=== PATIENT | female | born 1960 | race African-American/Black ===

== ENCOUNTER → 2016-05-19 | Outpatient (CLI) | payer MEDICARE, MEDICAID ==
[~2016-05-19] MED LIST: LIDOCAINE 2% INJ (20 MG/ML) 20 ML MDV ONE
--- NOTE | 2016-05-19 17:33 | WOMENS IMAGING REPORT ---
EXAM DESCRIPTION: U/S BREAST UNILAT LIMITED COMPLETED DATE/TIME: 05/19/2016 2:46 pm REASON FOR STUDY: Z85.3 PERSONAL HISTORY OF BREAST CANCER N63 UNSPECIFIED LUMP IN BREAST COMPARISON: Ultrasound left mastectomy incision site 04/27/2016 TECHNIQUE: Real-time and static grayscale imaging performed of the left mastectomy incision site tar geted to the area of clinical concern. Selected color Doppler images recorded. LIMITATIONS: None. FINDINGS: Prior imaging from 04/27/2016 was reviewed. Patient was here today for possible ultrasound-guided core biopsy of a hypoechoic nodule seen in the subcutaneous fat along the old left mastectomy incision identified on 04/27/2016 ultrasound exam. Today, neither patient nor I could feel the area of concern from 04/27/2016. Ultrasound over the left mastectomy incision scar demonstrates no discrete solid nodules. No small c ystic areas. No areas of acoustic absorption. Findings seen on 04/27/2016 have resolved, and may ramirez ve been residua of an inflamed or infected sebaceous cyst. This was discussed with the patient, she will return for additional ultrasound imaging if a palpable nodule recurs along the left mastectomy scar BIRAD: 1 Negative. RECOMMENDATION: RECOMMENDED FOLLOW-UP: Please continue right breast screening mammography in August 06 017 COMMENT: The [employer] (ACR) has developed recommendations for screening MRI of the breasts in certain patient populations, to be used in conjunction with mammography. Breast MRI s urveillance may be appropriate for women with more than 20% lifetime risk of developing breast cancer as determined by genetic testing, significant family history of the disease, or history of mantle r adiation for Hodgkins Disease. ACR Practice Guidelines 2008. TECHNICAL DOCUMENTATION: JOB ID: [id number] [employer]- All Rights Reserved
== END ==
LOC: WI 09:57 → EDSTATUS 14:37 → WI 14:38
PROVIDERS: ATTEND Physician Assistant
DX: N63 Unspecified lump in breast (principal)
CPT/HCPCS: 76642; J3490

== ENCOUNTER 2016-08-07 23:21 | Emergency (ER) | payer MEDICARE, MEDICAID ==
[2016-08-08] MEDS ORDERED: HYDRALAZINE HCL 25 MG TABLET PO ONE (05:04)
--- NOTE | 2016-08-08 05:07 | ER Document Report ---
Doctor's Note Notes: 08/08/16 05:04 I performed a quick triage evaluation of the patient. Patient is a 56-year-old female presents with complaint 5 blood pressure. She has no associated symptoms with a high blood pressure. Patient says that she keeps a close eye on her blood pressure because of her history of aortic dissection. She has an aneurysm that has been repaired the past. This was performed in 2008. She denies any chest pain. No back pain. No lateralizing symptoms. She is on metoprolol, amlodipine, and then our. She denies missing any of her medications. She denies any recent changes in her medications. Patient is very well-appearing on exam. I just rechecked her blood pressure was 159/109. I will give her a dose of oral hydralazine. I will obtain blood work. I do not think patient needs emergent immediate CTA prio to obtaining her creatinine results at this time being that she has no symptoms associated with hypertension. This can be reassessed by the oncoming provider once her blood work is back in her blood pressures treated. Externally pulses are equal. Dictation of this chart was performed using voice recognition software; therefore, there may be some unintended grammatical errors. 08/08/16 05:08
--- NOTE | 2016-08-08 06:07 | ER Document Report ---
ED Blood Pressure Problem - General Mode of Arrival: Ambulatory Information source: Patient TRAVEL OUTSIDE OF THE [place] IN LAST 30 DAYS: No - HPI Patient complains to provider of: High blood pressure Onset: Yesterday Onset/Duration: Gradual, Persistent Quality of pain: No pain Associated symptoms: Dizziness - Intermittently with walking, Headache <AIRAM LEES - Last Filed: 08/08/16 11:36> <GERMAINE LOMBARDO - Last Filed: 08/08/16 21:17> - General Chief Complaint: High Blood Pressure Stated Complaint: POSSIBLE HIGH BLOOD PRESSURE Notes: Patient is a 56-year-old female presenting to the emergency department concerned because her blood pressure has been running high over the past few days. Patient has a history of aortic aneurysm which was repaired in 2008, so she gets worried when her blood pressure rises. Patient states that she has a mild headache and sometimes is dizzy when she walks. Patient has no other complaints at this time. (AIRAM LEES) - Related Data Allergies/Adverse Reactions: aspirin [Aspirin] Allergy (Verified 07/01/15 09:54) Penicillins Allergy (Verified 07/01/15 09:54) Past Medical History - General Information source: Patient - Social History Smoking Status: Unknown if Ever Smoked Family History: Reviewed & Not Pertinent Patient has suicidal ideation: No Patient has homicidal ideation: No - Past Medical History Cardiac Medical History: Reports: Hx Coronary Artery Disease, Hx Hypercholesterolemia, Hx Hypertension, Other - Aortic aneurysm Pulmonary Medical History: Reports: Hx Bronchitis, Hx Pneumonia Renal/ Medical History: Denies: Hx Peritoneal Dialysis Malignancy Medical History: Reports: Hx Breast Cancer Musculoskeltal Medical History: Reports Hx Arthritis Psychiatric Medical History: Reports: Hx Depression Past Surgical History: Reports: Hx Breast Surgery - L mastectomy, Hx Cardiac Surgery - aorta repair, Hx Section - Immunizations Hx Diphtheria, Pertussis, Tetanus Vaccination: Yes <AIRAM LEES - Last Filed: 08/08/16 11:36> Review of Systems - Review of Systems Constitutional: No symptoms reported EENT: No symptoms reported Cardiovascular: See HPI, Dizziness - With walking intermittently Respiratory: No symptoms reported Gastrointestinal: No symptoms reported Genitourinary: No symptoms reported Female Genitourinary: No symptoms reported Musculoskeletal: No symptoms reported Skin: No symptoms reported Hematologic/Lymphatic: No symptoms reported Neurological/Psychological: See HPI, Headaches -: Yes All other systems reviewed and negative <YOANAAIRAM - Last Filed: 08/08/16 11:36> Physical Exam - General General appearance: Appears well, Alert - HEENT Head: Normocephalic, Atraumatic Eyes: Normal Pupils: PERRL - Respiratory Respiratory status: No respiratory distress Chest status: Nontender Breath sounds: Normal Chest palpation: Normal - Cardiovascular Rhythm: Regular Heart sounds: Normal auscultation Murmur: Yes - 1/4 systolic murmur - Abdominal Inspection: Morbidly Obese Tenderness: Nontender - Back Back: Normal, Nontender - Extremities General upper extremity: Normal inspection, Nontender General lower extremity: Normal inspection, Nontender - Neurological Neuro grossly intact: Yes Cognition: Normal Orientation: AAOx4 G[place]inner Coma Scale Eye Opening: Spontaneous Bernard Coma Scale Verbal: Oriented Bernard Coma Scale Motor: Obeys Commands G[place]inner Coma Scale Total: 15 Speech: Normal - Psychological Associated symptoms: Normal affect, Normal mood - Skin Skin Temperature: Warm Skin Moisture: Dry Skin Color: Normal <AIRAM LEES - Last Filed: 08/08/16 11:36> Course - Laboratory Result Diagrams: 08/08/16 06:00 08/08/16 06:00 <AIRAM LEES - Last Filed: 08/08/16 11:36> - Laboratory Result Diagrams: 08/08/16 06:00 08/08/16 06:00 <GERMAINE LOMBARDO - Last Filed: 08/08/16 21:17> - Re-evaluation Re-evalutation: 08/08/16 07:51 I personally performed the services described in the documentation, reviewed and edited the documentation which was dictated to my scribe in my presence, and it accurately records my words and actions. Patient presents emergency, chief plain elevated blood pressure. She says she missed a couple doses on Sunday she is on amlodipine losartan Toprol. She denies any acute headache blurred vision double vision such final dizzy yesterday no syncope or near-syncope. She is not having any strokelike symptoms are reported any strokelike symptoms she has an extensive cardiac history but denies any chest pain pressure shortness of breath or pain with exertion. She denies any new lower extremity edema calf tenderness swelling history DVT or pulmonary emboli. On physical examination there is no acute emergent neurological deficits or findings. I give her clonidine she says she's getting over to Dr. Pineda's office who is her cement [employer] and manages her blood pressure right now to get blood pressure medication adjusted I think this is warranted. We don't want to rapidly lower blood pressure without and organ damage signs it will need to be done gradually watch very closely and I do think that's appropriate the doctor nature would see her today or tomorrow and we discussed reasons for ED return sooner (GERMAINE LOMBARDO) - Vital Signs Vital signs: Temp Pulse Resp BP Pulse Ox 98.3 F 80 15 154/112 H 100 08/07/16 23:26 08/08/16 01:58 08/08/16 08:01 08/08/16 08:01 08/08/16 07:01 - Laboratory Laboratory results interpreted by me: 08/08/16 08/08/16 06:00 06:00 Hgb 11.8 L Hct 35.3 L RDW 14.3 H Sodium 148.6 H Chloride 108 H BUN 21 H Glucose 113 H Discharge <AIRAM LEES - Last Filed: 08/08/16 11:36> <GERMAINE LOMBARDO - Last Filed: 08/08/16 21:17> - Discharge Clinical Impression: elevated blood pressure Condition: Stable Disposition: HOME, SELF-CARE Instructions: High Blood Pressure, Requiring Treatment ([facility]) Additional Instructions: Hypertension Return or call the doctor immediately if you develop severe headache, stroke like symptoms, abdominal pain, severe swelling, repeated vomiting, vaginal bleeding, or shortness of breath. Called Dr. sotelo's office now to be seen in follow-up 1-2 days return for increasing worsening or new symptoms Forms: Elevated Blood Pressure Referrals: [facility] LEV[facility], [facility] [employer] [Primary Care Provider] - Follow up as needed Scribe Documentation - Scribe Written by Scribe:: Airam eLes 08/08/2016 0606 acting as scribe for :: Delmar <AIRAM LEES - Last Filed: 08/08/16 11:36>
[2016-08-08 06:19] LABS: ABSOLUTE EOSINOPHILS # (AUTO) 0.1 10^3/uL (0.0-0.6); ABSOLUTE LYMPHOCYTES (AUTO) 1.4 10^3/uL (0.5-4.7); ABSOLUTE MONOCYTES (AUTO) 0.4 10^3/uL (0.1-1.4); ABSOLUTE NEUT (AUTO) 4.6 10^3/uL (1.7-8.2); BASOPHILS % (AUTO) 0.7 % (0-2); EOSINOPHILS % (AUTO) 1.1 % (0-6); HEMATOCRIT 35.3 % (36.0-47.0); HEMOGLOBIN 11.8 g/dL (12.0-15.5); HGB HCT DIFFERENCE 0.1; LYMPHOCYTES % (AUTO) 21.3 % (13-45); MEAN CORPUSCULAR HGB CONC 33.4 g/dL (32.0-36.0); MEAN CORPUSCULAR VOLUME 87 fl (80-97); MONOCYTES % (AUTO) 6.5 % (3-13); RED BLOOD COUNT 4.06 10^6/uL (3.72-5.28); RED CELL DISTRIBUTION WIDTH 14.3 % (11.5-14.0); SEGMENTED NEUTROPHILS % (AUTO) 70.4 % (42-78); WHITE BLOOD COUNT 6.6 10^3/uL (4.0-10.5)
[2016-08-08 06:40] LABS: ANION GAP 11 (5-19); BLOOD UREA NITROGEN 21 mg/dL (7-20); CALCIUM 9.8 mg/dL (8.4-10.2); CARBON DIOXIDE 30 mmol/L (22-30); CHLORIDE 108 mmol/L (98-107); CREATININE RESULT 0.88 mg/dL (0.52-1.25); GLUCOSE 113 mg/dL (75-110); POTASSIUM 3.6 mmol/L (3.6-5.0); SODIUM 148.6 mmol/L (137-145)
[2016-08-08] MEDS ORDERED: CLONIDINE HCL 0.1 MG TABLET PO ONE (07:53)
[2016-08-08 08:07] VITALS: BP 154/112
--- NOTE | 2016-08-08 13:15 | EKG REPORT ---
SEVERITY:- OTHERWISE NORMAL ECG - SINUS RHYTHM VENTRICULAR PREMATURE COMPLEX BORDERLINE LEFT AXIS DEVIATION : Confirmed by: Bridgett Hernandez MD 08-Aug-2016 13:13:52
== END 2016-08-08 08:07 | disposition home or self-care (01) ==
LOC: ER 23:21
DX: R03.0 Elevated blood-pressure reading, without diagnosis of hypertension (principal); R51 Headache; R42 Dizziness and giddiness
CPT/HCPCS: 93005; 99283; 36415; 85025; 80048; 93010; A9270 ×2